=== PATIENT | male | born 1970 | race Caucasian/White ===

== ENCOUNTER 2018-10-09 09:46 | Emergency (ER) | payer BC ==
[2018-10-09] MEDS ORDERED: NS 0.9% 1000 ML** 1,000 ML IV ONE (10:36)
[2018-10-09] MEDS ORDERED: Clindamycin 600 MG/D5W BAG(*) 600 MG/50 ML BAG IV ONE (10:36)
[2018-10-09 11:37] LABS: ABS Basophils 0.1 10^3/ul (0-0.2); ABS Eosinophils 0.1 10^3/ul (0-0.6); ABS Lymphocytes 2.2 10^3/ul (1.0-4.8); ABS Monocytes 0.8 10^3/ul (0-0.8); ABS Neutrophils 5.8 10^3/ul (1.5-7.7); ABS Nucleated RBC 0 10^3/ul; Eosinophil % 1.4 %; Hematocrit 43 % (36-46); Hemoglobin 14.5 g/dL (14.0-18.0); Lymphocyte % 24.7 %; Mean Corpuscular HGB Conc 33 g/dL (31-36); Mean Corpuscular Hemoglobin 30 pg (27-31); Mean Corpuscular Volume 89 fL (80-94); Mean Platelet Volume 8.4 fL (7.4-10.4); Nucleated Red Blood Cells % 0; Platelet Count 265 10^3/uL (150-450); Red Blood Count 4.89 10^6 /uL (4.18-5.48); Red Cell Distribution Width 15 % (10.5-15)
[2018-10-09 11:57] LABS: Albumin/Globulin Ratio 1.5 (1-3); BUN/Creatinine Ratio 16.2 (8-20); C Reactive Protein 70.26 mg/L (<8.01); Calcium 8.9 mg/dL (8.6-10.3); EGFR African American 135.5 (>60); Globulin 2.7 g/dL (2-4); Potassium 4.5 mmol/L (3.5-5.0); Total Bilirubin 0.5 mg/dL (0.2-1.0); Total Protein 6.7 g/dL (6.4-8.9)
[2018-10-09] MEDS ORDERED: Iodixanol* (CONTRAST) 320 MG/ML 100 ML SDV IV ONE (12:17)
[2018-10-09 13:17] VITALS: BP 123/91
--- NOTE | 2018-10-09 15:30 | ED ---
Throat Pain/Nasal Congestion - HPI Summary HPI Summary: Patient is a 48-year-old male with a recent history of dental root canal over tooth #28 2 days ago presenting to the ED with slight swelling and intermittent fevers well controlled with Tylenol and ibuprofen. He also is endorsing swelling over the submental area without any difficulty swallowing. He denies any odynophagia. He endorses mild trismus. He states he did not follow back up with his dentist. Currently on Augmentin and ibuprofen only. He denies any sweats or chills. He is otherwise healthy and takes high blood pressure medication. - History of Current Complaint Chief Complaint: EDDentalPain Time Seen by Provider: 10/09/18 10:24 Hx Obtained From: Patient Onset/Duration: Sudden Onset Severity: Moderate Associated Signs And Symptoms: Negative: Dysphagia, FB Sensation - Epiglottits Risk Factors Epiglottis Risk Factors: Negative - Allergies/Home Medications Allergies/Adverse Reactions: Allergies Allergy/AdvReac Type Severity Reaction Status Date / Time No Known Allergies Allergy Verified 10/09/18 10:00 Home Medications: Home Medications Amoxicillin/Clavulanate TAB* [Augmentin TAB 500 mg*] 500 mg PO TID 10/09/18 [ History Confirmed 10/09/18] Candesartan Cilexetil 8 mg PO DAILY 10/09/18 [History Confirmed 10/09/18] Cyclobenzaprine TAB* [Flexeril 10 MG TAB*] 10 mg PO TID PRN 10/09/18 [History Confirmed 10/09/18] Ibuprofen TAB* [Motrin TAB* 800 MG] 800 mg PO Q6H PRN 10/09/18 [History Confirmed 10/09/18] metFORMIN* [Glucophage 500 MG TAB *] 500 mg PO BID 10/09/18 [History Confirmed 10/09/18] PMH/Surg Hx/FS Hx/Imm Hx Previously Healthy: Yes Endocrine/Hematology History: Reports: Hx Diabetes Cardiovascular History: Reports: Hx Hypertension - Immunization History Hx Pertussis Vaccination: No Immunizations Up to Date: Yes Infectious Disease History: No Infectious Disease History: Denies: Traveled Outside the [place] in Last 30 Days - Social History Occupation: Employed Full-time Lives: With Family Alcohol Use: None Hx Substance Use: No Substance Use Type: Reports: None Hx Tobacco Use: Yes Smoking Status (MU): Heavy Every Day Tobacco Smoker Review of Systems Constitutional: Negative Negative: Fever, Skin Diaphoresis Positive: Dental Pain. Negative: Sore Throat, Ear Ache, Nasal Discharge Negative: Palpitations, Chest Pain Negative: Shortness Of Breath, Cough Negative: Rash, Bruising Neurological: Negative All Other Systems Reviewed And Are Negative: Yes Physical Exam Triage Information Reviewed: Yes Vital Signs On Initial Exam: Initial Vitals Temp Pulse Resp BP Pulse Ox 98.9 F 105 16 145/100 96 10/09/18 09:56 10/09/18 09:56 10/09/18 09:56 10/09/18 09:56 10/09/18 09:56 Vital Signs Reviewed: Yes Appearance: Positive: Well-Appearing, Well-Nourished Skin: Positive: Warm, Skin Color Reflects Adequate Perfusion Head/Face: Positive: Normal Head/Face Inspection Eyes: Positive: EOMI, Conjunctiva Clear Neck: Positive: Supple, Tenderness @ - submental area swelling wihtout tenderness, Enlarged Nodes @ - cervical Respiratory/Lung Sounds: Positive: Clear to Auscultation, Breath Sounds Present Cardiovascular: Positive: RRR, Pulses are Symmetrical in both Upper and Lower Extremities Musculoskeletal: Positive: Strength/ROM Intact Neurological: Positive: Sensory/Motor Intact, Alert, Oriented to Person Place, Time, Speech Normal Psychiatric: Positive: Affect/Mood Appropriate AVPU Assessment: Alert Diagnostics - Vital Signs Vital Signs Temp Pulse Resp BP Pulse Ox 10/09/18 13:16 98.7 F 82 16 123/91 97 10/09/18 09:56 98.9 F 105 16 145/100 96 - Laboratory Lab Results: Lab Results 10/09/18 10/09/18 10/09/18 Range/Units 11:30 11:30 11:30 WBC 9.0 (3.5-10.8) 10^3/uL RBC 4.89 (4.18-5.48) 10^6 /uL Hgb 14.5 (14.0-18.0) g/dL Hct 43 (36-46) % MCV 89 (80-94) fL MCH 30 (27-31) pg MCHC 33 (31-36) g/dL RDW 15 (10.5-15) % Plt Count 265 (150-450) 10^3/uL MPV 8.4 (7.4-10.4) fL Neut % (Auto) 64.2 % Lymph % (Auto) 24.7 % [place] % (Auto) 8.6 % Eos % (Auto) 1.4 % Baso % (Auto) 1.1 % Absolute Neuts (auto) 5.8 (1.5-7.7) 10^3/ul Absolute Lymphs (auto) 2.2 (1.0-4.8) 10^3/ul Absolute Monos (auto) 0.8 (0-0.8) 10^3/ul Absolute Eos (auto) 0.1 (0-0.6) 10^3/ul Absolute Basos (auto) 0.1 (0-0.2) 10^3/ul Absolute Nucleated RBC 0 10^3/ul Nucleated RBC % 0 Sodium 138 (135-145) mmol/L Potassium 4.5 (3.5-5.0) mmol/L Chloride 107 (101-111) mmol/L Carbon Dioxide 25 (22-32) mmol/L Anion Gap 6 (2-11) mmol/L BUN 12 (6-24) mg/dL Creatinine 0.74 (0.67-1.17) mg/dL Est GFR ( Amer) 135.5 (>60) Est GFR (Non-Af Amer) 112.0 (>60) BUN/Creatinine Ratio 16.2 (8-20) Glucose 114 H (70-100) mg/dL Lactic Acid 1.1 (0.5-2.0) mmol/L Calcium 8.9 (8.6-10.3) mg/dL Total Bilirubin 0.50 (0.2-1.0) mg/dL AST 23 (13-39) U/L ALT 38 (7-52) U/L Alkaline Phosphatase 49 (34-104) U/L C-Reactive Protein 70.26 H (<8.01) mg/L Total Protein 6.7 (6.4-8.9) g/dL Albumin 4.0 (3.2-5.2) g/dL Globulin 2.7 (2-4) g/dL Albumin/Globulin Ratio 1.5 (1-3) Result Diagrams: 10/09/18 11:30 10/09/18 11:30 Lab Statement: Any lab studies that have been ordered have been reviewed, and results considered in the medical decision making process. EENT Course/Dx - Course Course Of Treatment: During the patient's course treatment, he is evaluated for swelling near the site of the root canal as well as some swelling into the submental area. He denies any difficulty swallowing or odynophagia. He endorses mild trismus. He states he has been having fevers off and on, but have been well controlled with Tylenol and ibuprofen. He denies any pain to this area. He denies any difficulty with airway or SOB. Denies any CP. Neck CT obtained which shows swelling along the right mandible consistent with cellulitis, likely odontogenic, with associated periapical lucency along the right mandibular bicuspid. There is no loculated fluid collection to suggest soft tissue abscess. While in the ED, labs are obtained which showed no elevated white count, however elevated CRP. Patient is also given clindamycin 600 IV while in the ED. Patient will be discharged home with antibiotics for clindamycin as well as his home antibiotics for Augmentin for broader coverage, he will continue to take Tylenol and ibuprofen intermittently and use ice for relief. He understands if swelling gets worse, or if he develops fevers not well controlled with Tylenol or ibuprofen, sweats, or any difficulty breathing, he which and to the ED immediately. - Differential Diagnoses Differential Diagnoses: Other - Recent root canal, infection, abscess, swelling - Diagnoses Provider Diagnoses: Dentoalveolar cellulitis Discharge - Sign-Out/Discharge Documenting (check all that apply): Patient Departure Patient Received Moderate/Deep Sedation with Procedure: No - Discharge Plan Condition: Stable Disposition: HOME Prescriptions: Clindamycin Cap(NF) [Clindamycin Cap 300 mg Cap(NF)] 300 mg PO Q6H #28 cap Patient Education Materials: Clindamycin (By mouth), Cellulitis (ED) Referrals: Norberto Santiago MD [Primary Care Provider] - Additional Instructions: Continue with Tylenol and ibuprofen as scheduled, once every 3 hours intermittently Clindamycin 4 times daily 7 days Continue to use her Augmentin Use probiotics on the opposite schedule of your antibiotics to avoid side effects If you develop any worsening or changing symptoms, return to the ED immediately - Billing Disposition and Condition Condition: STABLE Disposition: Home
== END 2018-10-09 13:16 | disposition home or self-care (01) ==
LOC: ED 09:46
DX: K12.2 Cellulitis and abscess of mouth (principal); I10 Essential (primary) hypertension; K08.89 Other specified disorders of teeth and supporting structures; F17.210 Nicotine dependence, cigarettes, uncomplicated; E11.9 Type 2 diabetes mellitus without complications
CPT/HCPCS: 36415; 70491; 80053; 83605; 85025; 86140; 99282; Q9967